=== PATIENT | male | born 1945 | race Caucasian/White ===

== ENCOUNTER 2023-02-17 09:12 | Day surgery (SDC) | payer OTHER ==
[2023-02-17 08:49] VITALS: BMI 25.8
[2023-02-17] MEDS ORDERED: LIDOCAINE VISCOUS 2% ORAL/TOP 15 ML UNIT-DOSE CUP ONE (09:49)
[2023-02-17 10:28] VITALS: TEMP 98.6
[2023-02-17 11:04] VITALS: BP 127/60; PULSE 79; RESP 16
== END 2023-02-17 11:05 | disposition home or self-care (01) ==
LOC: JASU-ENDO 09:12
PROVIDERS: ATTEND Internal Medicine Gastroenterology
PROC: 0DB78ZX Excision of Stomach, Pylorus, Via Natural or Artificial Opening Endoscopic, Diagnostic (ICD-10-PCS; 2023-02-17)
PROC: 0DB68ZX Excision of Stomach, Via Natural or Artificial Opening Endoscopic, Diagnostic (ICD-10-PCS; principal; 2023-02-17 10:45)
DX: K29.50 Unspecified chronic gastritis without bleeding (principal)